=== PATIENT | female | born 1955 | race Caucasian/White ===

== ENCOUNTER 2021-04-26 10:19 | Outpatient (CLI) | payer MEDICARE, OTHER, SELFPAY | END 2021-04-26 10:20 | disposition home or self-care (01) | LOC: CHSOUTPT 10:28 | PROVIDERS: PCP Specialist; Visit Provider Specialist | DX: D22.61 Melanocytic nevi of right upper limb, including shoulder (principal) | CPT/HCPCS: 88305 ==